=== PATIENT | male | born 1945 | race Caucasian/White ===

== ENCOUNTER 2016-10-15 11:34 | Inpatient (IN) | payer MEDICARE, OTHER ==
--- NOTE | ~2016-10-15 | HP ---
History And Physical [place] [id number] [facility] [place]. [address] NAME: ODILON NOLASCO : 43 STATUS : ADM IN [facility]#: [id number] AGE: 70 ADM/REG DATE : 10/15/16 MR#: [id number] REPORT SERV DATE: 10/15/16 DICTATED BY: VEGA SOLIS DATE: 10/15/16 REPORT STATUS : Draft TRANSCRIBED BY: LINDA DATE: 10/15/16 DATE OF ADMISSION: 10/15/2016 CO-ADMITTING: Porter Iverson D.P.M. REASON FOR ADMISSION: Foot pain. HISTORY OF PRESENT ILLNESS: This is a 70-year-old white male who was offered an operation on his right foot about four to six weeks ago. Anesthesiologist canceled the case because blood sugar was over 400. He does have a longstanding history of adult-onset diabetes mellitus. He says he has lost about 100 pounds from his most obese weight. His blood sugar was not checked this morning because of the pain. He took two Lortab and went to the office of Dr. Porter Iverson where he was evaluated. Dr. Iverson called me and asked for admission. He does have a noninvasive vascular flow study that showed no occlusive elements above the ankle that was done in 07/2016. He had been on three different antibiotics; Septra, Augmentin, and most recently Keflex over the last three months. He does have a draining of a 3-5 mm ulcer on the lateral side of the mid right 4th toe. Dr. Iverson is going to follow and look for other measures to give him pain relief. The pain had been going on for the last six to eight weeks. It had gotten better. It began coming back yesterday all of a sudden in the afternoon, it has been giving pain ever since, he has not gotten any relief. He is mainly admitted for intractable pain and to rule out serious illness and possible treatment options. He is admitted to observation. PAST MEDICAL HISTORY: He has a history of nonocclusive coronary artery disease. Dr. Paniagua in [place] has done coronary arteriography on him with 40% occlusions or less. He is said to have congestive heart failure. His ejection fraction has not been told to him. We will get records from Dr. Paniagua. He has muscle cramps at nighttime. He takes ropinirole and tizanidine for this, but he is on simvastatin as well. HOME MEDICATIONS: Include the following: Furosemide 40 mg p.o. daily, amlodipine 5 mg p.o. daily, potassium chloride 20 mEq p.o. daily, tizanidine 4 mg p.o. at bedtime, simvastatin 20 mg p.o. daily, ropinirole 2 mg p.o. at bedtime, citalopram 20 mg p.o. daily, meloxicam 7.5 mg p.o. daily, cyclobenzaprine 10 mg p.o. twice a day as needed for abdominal cramping, lisinopril 5 mg p.o. daily, furosemide 40 mg p.o. daily, and he had been on the Keflex as mentioned. ALLERGIES: NO KNOWN DRUG ALLERGIES. SOCIAL HISTORY: He has been for about a year and a half. He moved down to [place] about seven years ago. He has been disabled since the when he had bilateral hip joint replacements and knee joint replacement from arthritis. 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 No cigarettes. No alcohol. History And Physical [address] [address] NAME: ODILON NOLASCO : 43 STATUS : ADM IN [facility]#: [id number] AGE: 70 ADM/REG DATE : 10/15/16 MR#: [id number] REPORT SERV DATE: 10/15/16 DICTATED BY: VEGA SOLSI DATE: 10/15/16 REPORT STATUS : Draft TRANSCRIBED BY: LINDA DATE: 10/15/16 FAMILY HISTORY: All of his brothers and sisters six in total are from cancers of various types. His mother and father of cancer as well. REVIEW OF SYSTEMS: He has had no chest pain or shortness of breath. No fever, chills, night sweats, melena, hematemesis, nausea, vomiting, or diarrhea. He does have distal foot pain. It seems to ascend up the ankle and throb. He does have a small ulcer on the right 4th toe as well. He has had no melena, hematemesis, fits, seizures, convulsions, unilateral weakness, nausea, vomiting, or diarrhea. He has lost 100 pounds from his maximum weight. He has no history of gout. There is no history of fracture or trauma to the foot, though he had some bone slivers that were going to be removed by Dr. Iverson. I suspect this was to remove some of the bunion formation causing the pressure ulcer on the right 4th lateral toe. The remainder of the review of systems are negative. PHYSICAL EXAMINATION: VITAL SIGNS: His blood pressure was 140/70 with heart rate 80, respiratory rate 16, afebrile. HEENT: EOMI. Sclerae clear. Conjunctivae pink. NECK: No bruit. No JVD. CHEST: Clear to A and P. HEART: Regular S1, S2 without murmur, gallop, or click. ABDOMEN: Grossly obese. Nontender. Bowel sounds positive. No HSM. EXTREMITIES: He has edema, 3+, pitting in the feet bilaterally. He has tenderness over the right lateral toes with some redness, but no extreme heat. Distal pulses are intact through the dorsalis pedis bilaterally, confirming suspicion for the open vasculature of the lower extremities confirmed by the noninvasive arterial flow study done in 07/2016. This was read by Grey Harper on 07/21/2016 with no evidence of peripheral arterial disease of in the right leg and no significant peripheral arterial disease in the left with DAVID approximately 1. Distal pulses are palpable. NEUROLOGIC: He withdraws to plantar stimulation. 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 Coordination intact. No tremor. He has moderate decreased sensation in his feet bilaterally. LYMPHATICS: There is no adenopathy palpable. SKIN: Without rash, ecchymosis, or bruising. He does have drying of the feet with some reddish changes to the feet with skin peeling and atrophic nails. LABORATORY: Laboratory is being ordered. ASSESSMENT: 1. Right foot pain, recurrent after it had been with him about six or eight weeks ago in toes #4 and #5. There is a small ulcer on the lateral aspect of the right 4th toe at contact with the least toe. 2. Adult-onset diabetes mellitus, uncontrolled. Would start checking blood sugars a.c. and at bedtime. Add sliding scale. History And Physical [facility] [address] [place]. [address] NAME: ODILON NOLASCO : 43 STATUS : ADM IN PAT#: [id number] AGE: 70 ADM/REG DATE : 10/15/16 MR#: [id number] REPORT SERV DATE: 10/15/16 DICTATED BY: VEGA SOLIS DATE: 10/15/16 REPORT STATUS : Draft TRANSCRIBED BY: MODL DATE: 10/15/16 3. Morbid obesity. 4. Doubt peripheral vascular disease as the ultrasound was negative un 07/2016. 5. Ulcer between the 4th and 5th toe. 6. History of congestive heart failure, followed by Dr. Paniagua in the past. 7. Chronic pain though he seldom took two or three of the hydrocodone a week in the interim period since he had the pain initially though that the narcotics are being given by Dr. Porter Iverson. 8. Hyperlipidemia. We will hold the simvastatin because of abdominal cramps and leg cramps. 9. Restless legs syndrome, on ropinirole. PLAN: He has already been treated with three different antibiotic regimens since last July. I will check a procalcitonin and sedimentation rate to see if there is worsening. I am going to go ahead and get an x-ray of the foot as well. Consider surgical intervention with removal of the bunion to help decrease the formation of the ulcer on the toe. Vascular Surgery was consulted by Dr. Porter Iverson, though I do feel dorsalis pedis pulses bilaterally. His pain makes the walking worse. I am going to add gabapentin for neuropathic pain. Check uric acid in the event of gout and try empiric colchicine. Dr. Iverson has consulted infectious Disease to see if this is an infectious entity. We will try to have labs that would be supportive of this as well. His home medications were reviewed. He is on Levemir 50 units subcu b.i.d. and sliding scale NovoLog, lisinopril 5 daily, citalopram 40 mg daily, amlodipine 5 mg p.o. daily, K-Dur 20 p.o. daily, ropinirole 2 mg p.o. daily, tizanidine 4 mg p.o. at nighttime for cramping. The patient is admitted to observation to look for serious illness. Dr. Iverson ordered some IV antibiotics, though if the procalcitonin is normal, we will discontinue those. Attempt pain control, and if no acute interventions to be made, we will discharge home for outpatient followup. We will be checking uric acid as well. DB/MODL Vega Solis M.D. / [id number] CC: Brielle Rasmussen TYLER KEITH
--- NOTE | ~2016-10-15 | DS ---
Discharge Summary [place] [id number] [place]. [address] NAME: ODILON NOLASCO : 43 STATUS : DIS IN PAT#: [id number] AGE: 70 ADM/REG DATE : 10/15/16 MR#: [id number] REPORT SERV DATE: 10/21/16 DICTATED BY: DATE: REPORT STATUS : Draft TRANSCRIBED BY: MODL DATE: 10/20/16 ADMISSION DATE: 10/15/2016 DISCHARGE DATE: 10/20/2016 DISCHARGE DIAGNOSES: 1. Diabetes mellitus type 2 with hyperglycemia. 2. 4th and 5th toe ulceration, postop day three, aortogram and arthroplasty. 3. Obstructive sleep apnea without CPAP. 4. Decreased mobility. 5. Chronic pain. 6. Restless legs syndrome. 7. History of congestive heart failure. 8. Anxiety. 9. Morbid obesity with BMI greater than 40. 10.Hyperlipidemia. 11.Noncompliant with medications or diet at home. 12.Constipation. CONSULTATIONS: Dr. Capone with Vascular, Dr. Duff with Infectious Diseases, and Dr. Iverson with Podiatry. PROCEDURES AND IMAGIN. 10/15/2016, right foot x-ray showed no osseous destruction identifiable to indicate osteomyelitis, osseous demineralization present, diffuse soft tissue swelling. 2. 10/16/2016, venous Doppler of bilateral lower extremities showed:. a. Normal arterial flow too and including the right popliteal artery. b. Monophasic waveforms indicate moderate arterial occlusive disease involving the right popliteal trifurcation and tibial arteries. c. Normal arterial flow in the left femoral artery, left popliteal artery, and left posterior tibial artery at the ankle. The left anterior tibial artery is occluded. d. Diminished waveforms of the digital arteries in each great toe indicates small vessel disease. 3. 10/20/2016, portable chest x-ray shows suspect retrocardiac hiatal hernia and patchy consolidation at the left base. HOSPITAL COURSE: Please refer to Dr. Jose Nicholas's history and physical dated 10/15/2016 for complete details regarding the patient's admission. In brief, the patient was admitted by Dr. Nicholas for initial workup and management of right foot pain. The patient was scheduled to have surgery and anesthesiologist cancelled the case due to blood sugar being over 400. The patient had been seen by Dr. Iverson on a regular basis for drainage of a 3-5 mm ulcer on the lateral side of the mid right toe and has been on three different antibiotics. Infectious Disease was consulted upon arrival and the patient was placed on clotrimazole and other antibiotics were discontinued. Dr. Duff was consulted with Infectious Diseases. Please see consultation on 10/16/2016. The patient had an aortogram by Dr. Capone on his right lower extremity on 10/17/2016 as well as right 4th and 5th toe Discharge Summary [address] [address] NAME: ODILON NOLASCO : 43 STATUS : DIS IN PAT#: [id number] AGE: 70 ADM/REG DATE : 10/15/16 MR#: [id number] REPORT SERV DATE: 10/21/16 DICTATED BY: DATE: REPORT STATUS : Draft TRANSCRIBED BY: LINDA DATE: 10/20/16 proximal interphalangeal joint arthroplasties by Dr. Porter Iverson on 10/17/2016. The patient's hemoglobin A1c was 10.0 upon admission. The patient refused to see washer machine regarding his diet stating that he would not be compliant at home. The patient is supposed to be on a sliding scale insulin at home, but rarely takes his blood sugar even once a day. He states he always eats out at buffets and needs to eat like other people. The patient does take his Levemir insulin 50 units twice daily, but is not compliant with his NovoLog sliding scale. During the patient's stay, he did have overnight oximetry and it was determined that he needs to be wearing 2 L of oxygen at bedtime upon discharge. The patient was evaluated by Physical Therapy and Occupational therapy for difficulties with balance in relation to his surgery. The patient was already having decreased mobility prior to admission and had been using a wheelchair. The patient will be being discharged to rehab. The patient states that he has lost over 100 pounds in the last year or so. The patient's blood sugars have been fairly well controlled with the addition of 5 units with meal insulin. We are increasing his bedtime dosing of Levemir to 52 units to assist with some rebound blood sugars in the morning. The patient's blood cultures at four days are negative. He also has a negative UA. PHYSICAL EXAMINATION: GENERAL: The patient states that he has not been in the chair much because it takes two to three people to get him up. It was discussed with him that he is to get himself to the edge of the bed and should only need assistance for transfer. The patient does verbalizes understanding of this fact. VITAL SIGNS: Blood pressure is 124/58, temperature is 97.9, heart rate is 62, O2 saturation is 97% on room air, respirations are 19. HEENT: Head is atraumatic, normocephalic. Pupils are equal, round, reactive to light. The patient is edentulous. No xanthelasma. Sclerae are clear and nonicteric. NECK: Neck is supple with no obvious lymphadenopathy or thyromegaly. Neck veins are flat. CARDIAC: S1 and S2 with no obvious murmurs, rubs, or gallops. LUNGS: Lungs are clear with normal respiratory effort. Lungs sounds are distant secondary to large body habitus. GI: Abdomen is soft and nontender with bowel sounds in all four quadrants. Normal bowel habitus. Large pannus and obese abdomen. EXTREMITIES: Doppler posterior tibial right lower extremity, toes pink with good capillary refill, less than 2 seconds. Skin of his right crowe is shiny with some edema, but decreased from previous day. Left lower extremity has dorsalis pedis and posterior tibial pulses present 1+. No calf tenderness present. MUSCULOSKELETAL: Moves all extremities x4. SKIN: Warm and dry with normal color and turgor. NEURO/PSYCH: The patient is anxious with activity. Cranial nerves II through XII are grossly intact. DISCHARGE DIET: 1800-calorie ADA diet. DISCHARGE MEDICATIONS: Norvasc 5 mg daily, aspirin 81 mg daily, Plavix 75 mg daily, Celexa 40 mg daily, Neurontin 300 mg every eight hours, NovoLog insulin sliding scale level 2 with meals and at bedtime, NovoLog 5 units before meals, Requip 2 mg at bedtime, Zanaflex 4 mg at bedtime, Levemir 50 units in the morning and 52 units in the evening, Tylenol 650 mg p.r. or Discharge Summary [address] [address] NAME: ODILON NOLASCO : 43 STATUS : DIS IN PAT#: [id number] AGE: 70 ADM/REG DATE : 10/15/16 MR#: [id number] REPORT SERV DATE: 10/21/16 DICTATED BY: DATE: REPORT STATUS : Draft TRANSCRIBED BY: MODL DATE: 10/20/16 p.o. q.4 hours p.r.n. temperature greater than 101 or mild pain, Colace 100 mg p.o. twice daily as needed for bowel movements, glucose tablets for hypoglycemia protocol, Zofran 4 mg p.o. or sublingual every four hours as needed for nausea and vomiting, [place] 5/325 one tablet p.o. q.4 hours p.r.n. pain, Senokot two tablets p.o. p.r.n. bedtime, Zanaflex 4 mg three times a day p.r.n. spasm, Prinivil 5 mg daily, Lasix 40 mg daily, potassium chloride 20 mEq every other day, simvastatin 20 mg daily. ALLERGIES: THE PATIENT HAS NO KNOWN DRUG ALLERGIES. DISCHARGE INSTRUCTIONS: The patient is to follow up with PCP, Ren Hogan one week after discharge. The patient is to follow up with Dr. Iverson in one week, Dr. Capone in two to four weeks. Approximately, 40 minutes has been spent coordinating discharge care of this patient, including [id number] encounter and summarization of the discharge. DICTATED BY: MONISHA Irby/LINDA Janet Xie NP / [id number] CC: Brielle Jacobs TYLER KEITH
--- NOTE | ~2016-10-15 | CN ---
Consultation Report [facility] [address] [place]. [address] NAME: ODILON NOLASCO : 43 STATUS : ADM IN [facility]#: [id number] AGE: 70 ADM/REG DATE : 10/15/16 MR#: [id number] REPORT SERV DATE: 10/16/16 DICTATED BY: NAREN VENCES DATE: 10/15/16 REPORT STATUS : Draft TRANSCRIBED BY: LINDA DATE: 10/15/16 DATE OF CONSULTATION: REFERRING PHYSICIAN: Cachorro Schroeder DPM. REASON FOR CONSULT: Possible right foot infection. HISTORY OF PRESENT ILLNESS: A 70 years old white male with history of diabetes which is uncontrolled, hypertension, COPD, sleep apnea, diastolic dysfunction, hyperlipidemia, bilateral hip replacement, previous left knee surgery, profoundly suffered with lower legs edema and pruritus. He scratched them a lot. He had a wound between the right fourth and fifth toes with associated pain and maybe erythema. He was treated with Augmentin in July and recently with Keflex within the 09/29/2016 and 10/09/2016. He also got some opioids for pain. Yesterday, apparently he had severe pain in the foot and went to his tube cleaner who admitted the patient. I do not have any notes from Podiatry to understand exactly what the plan is, but the patient tells me that he had severe pain and uncontrolled diabetes and circulation problems. The patient reports no fever. He has chronic dyspnea. He has no pain in the hips or knees. Lab work here shows normal sedimentation rate at 11 and procalcitonin of less than 0.05. No leukocytosis with WBC of 8. A foot x-ray showed no evidence of osteomyelitis. Hemoglobin A1c is high at 10 and glucose is 312. The patient states he seems to be unable to keep a diabetic diet. Urinalysis unremarkable except for small urobilinogen, creatinine 0.7. PAST MEDICAL HISTORY: As I mentioned above. Restless legs. SOCIAL HISTORY: He is , disabled, retired. FAMILY HISTORY: Heart disease. ALLERGIES: NONE. MEDICATIONS ON ADMISSION: Aspirin, Celexa, Lasix, ibuprofen as needed, insulin, lisinopril, potassium, ropinirole, and simvastatin. PHYSICAL EXAMINATION: GENERAL: On exam, he is alert, awake. HEART: Distant sounds. Regular rhythm. LUNGS: Seem clear to auscultation. ABDOMEN: Obese. SKIN: Compressible skin with red papules over the chest and tiny scratch paul over the lower legs. He has lower legs edema. He has feet scaly skin. There is a little erythema on the left lateral foot, but there is no warmth to touch. Right foot without erythema or warmth to touch. In the space between the fourth and fifth toes, the skin is moist, but I cannot see an open wound. The toes are tight and it hurts when I try to spread them, so I cannot get a very good review, but I could not feel the dorsalis pedis pulse in the right Consultation Report [facility] [address] [place]. [address] NAME: ODILON NOLASCO : 43 STATUS : ADM IN [facility]#: [id number] AGE: 70 ADM/REG DATE : 10/15/16 MR#: [id number] REPORT SERV DATE: 10/16/16 DICTATED BY: NAREN VENCES DATE: 10/15/16 REPORT STATUS : Draft TRANSCRIBED BY: LINDA DATE: 10/15/16 foot. LAB WORK: As I mentioned. ASSESSMENT AND PLAN: 1. The patient has lower legs edema, scratch paul over the legs and interdigital tenia with severe pain between the fourth and fifth toes. He was previously treated for a wound in this area and maybe cellulitis. He just finished antibiotics on 10/09/2016. Currently I do not see any open wound or foot cellulitis. He has no fever, no leukocytosis. He has normal procalcitonin, white blood cell count, and sedimentation rate. I do not see reason to give antibiotics, but would use topical antifungal between the toes and through the skin of the feet. 2. Uncontrolled diabetes, that needs to be addressed. 3. Coronary artery disease, chronic obstructive pulmonary disease, sleep apnea, hypertension, obesity. 4. Bilateral hip replacement. On exam, there is no pain with range of motion of the hips and knees. Followup as needed. I placed a call to discuss with the tube cleaner. ROBBIN/LINDA Naren Vences M.D. / [id number] CC: Jose Nicholas M.D.
--- NOTE | ~2016-10-15 | PUL ---
[facility] [address] [facility] [place]. [address] NAME: ODILON NOLASCO : 43 STATUS : DIS IN PAT#: [id number] AGE: 70 ADM/REG DATE : 10/15/16 MR#: [id number] REPORT SERV DATE: 10/20/16 DICTATED BY: ERASTO MARTINEZ IV DATE: 10/20/16 REPORT STATUS : Draft TRANSCRIBED BY: LINDA DATE: 10/20/16 PULMONARY FUNCTION TEST OVERNIGHT OXIMETRY Study was performed on room air. 7 hours and 2 minutes of data are available for review. The mean oxygen saturation was 89.9%. The lowest scored saturation was 83%. The patient spent 42 minutes with oxygen saturations less than 88%. There were periods of oxygen saturation variation in saw-tooth pattern that varied by more than 4%. These appeared to be clustered more commonly near the end of the study. IMPRESSION: Significant nocturnal hypoxemia on room air. I would suggest placing the patient on 2 L of supplemental oxygen. There was a background pattern consistent with obstructive sleep apnea that would be mild to moderate based on a desaturation index of 15.6 per hour. I would suggest obtaining a formal polysomnography. ELIDA/LINDA Erasto Martinez IV, M.D. / [id number]
--- NOTE | ~2016-10-15 | OP ---
Record Of Operation [facility] [address] [place]. [address] NAME: ODILON NOLASCO : 43 STATUS : ADM IN PAT#: [id number] AGE: 70 ADM/REG DATE : 10/15/16 MR#: [id number] REPORT SERV DATE: 10/19/16 DICTATED BY: PORTER IVERSON DATE: 10/18/16 REPORT STATUS : Draft TRANSCRIBED BY: MODL DATE: 10/18/16 DATE OF PROCEDURE: 10/17/2016 SURGERY PERFORMED: [facility]. SURGEON: Porter Iverson D.P.M. 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 PROCEDURE: Right 4th and 5th toe proximal interphalangeal joint arthroplasties. PATHOLOGY: Bone, sent for histopathologic analysis. ANESTHESIA: Local with monitored anesthesia care with IV sedation. ESTIMATED BLOOD LOSS: 5 mL. MATERIALS: 2-0 Ethilon, 2-0 Vicryl. INJECTABLES: 7 mL of 1:1 mixture, 1% Xylocaine plain and 0.5% Marcaine plain. COMPLICATIONS: None. INDICATIONS: This is a 70-year-old gentleman who has had recent history of a painful ulceration on his right lateral 4th toe. The patient has been treated in the office with conservative care including normal saline, wet-to-dry dressings in the right 4th interdigital space. The patient recently presented to the office with concern of severe pain in the right forefoot. There was not any significant changes to the ulceration, however, the right 4th and 5th toes were extremely tender to palpation. Previous cultures of the ulceration were negative for any growth. There was concern, however, that due to the patient's severe pain that he was showing signs of ischemia. Recommended to be admitted to the hospital for vascular surgical intervention and also surgical treatment of the toes to address the biomechanics that are creating this ulceration. Dr. Capone, Vascular Surgery Service, was consulted and recommended the patient undergo right lower extremity arteriogram with endovascular intervention. It was recommended by our service that he undergo right 4th and 5th toe PIPJ arthroplasties. Discussed with the patient that by removing the heads of the proximal phalanges of the right 4th and 5th toes, reduced to contracture deformity that was resulting in the painful ulceration. Discussed with the patient that this procedure needs to be done along with Dr. Capone in order to make sure that the foot is getting adequate blood flow to heal from the surgery as well as to address the symptoms in his right foot. No problems or guarantees were given. The patient is scheduled for surgery. Record Of Operation [place] [address] [place]. [address] NAME: ODILON NOLASCO : 43 STATUS : ADM IN PAT#: [id number] AGE: 70 ADM/REG DATE : 10/15/16 MR#: [id number] REPORT SERV DATE: 10/19/16 DICTATED BY: PORTER IVERSON DATE: 10/18/16 REPORT STATUS : Draft TRANSCRIBED BY: LINDA DATE: 10/18/16 The patient was brought to the endovascular suite and transferred to the operating room table in the supine position. Appropriate monitoring equipment including EKG, blood pressure, pulse oximeter were attached to the patient and found to be in good working order. IV access was established on the floor. The patient was given preoperative antibiotics by Anesthesia. After the patient was identified by the surgeon, sedation was administered. The patient's right lower extremity was prepped and draped in the usual sterile manner for both our procedure as well as the arteriogram. The distal aspect of the left foot was further draped in order to provide a barrier between our procedure and vascular procedure. At this time, digital blocks were administered to the right 4th and 5th toes with a 1:1 mixture of 1% Xylocaine plain and 0.5% Marcaine plain. Attention was directed towards the dorsum of the right 4th and 5th toes over the area of the PIPJ. Longitudinal incisions were made and incisions were deepened with sharp and blunt dissection. The long extensor tendon on the right 4th and 5th toes were identified over the area of the PIPJ and transected horizontally. Medial and lateral collateral ligamentous structures were dissected free from the head of the proximal phalanx of the right 4th and 5th toes. The heads of the proximal phalanges of the right 4th and 5th toes were then removed with a double-action bone cutting forceps. The resected bone was sent for histopathologic analysis. 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 This reduced pressure on the side of the ulceration on the lateral aspect of the right 4th toe. Operative sites were copiously irrigated with normal saline. Long extensor tendons were repaired with 4-0 Vicryl and skin was reapproximated with 4-0 Ethilon in a simple interrupted and interrupted horizontal mattress fashion. Standard postop dressing including Xeroform, dry sterile gauze, and 4 inch Jose wrap was applied to the right foot. After our procedure was performed, Dr. Capone then performed endovascular intervention as dictated by Dr. Capone. The patient tolerated the procedures and anesthesia well. The patient left the operating room and returned to recovery room with vital signs stable and vital signs intact. The patient will be readmitted to the floor at [facility] for continued postoperative care. Once medically and surgically stable, will be discharged home. We will follow up the patient. /MODL Porter Iverson D.P.M. / [id number] CC: Brielle Jacobs M.D.
--- NOTE | ~2016-10-15 | OP ---
Record Of Operation [facility] [address] [place]. [address] NAME: ODILON NOLASCO : 43 STATUS : DIS IN PAT#: [id number] AGE: 70 ADM/REG DATE : 10/15/16 MR#: [id number] REPORT SERV DATE: 10/20/16 DICTATED BY: FABIEN CAPONE DATE: 10/20/16 REPORT STATUS : Draft TRANSCRIBED BY: MODL DATE: 10/20/16 DATE OF PROCEDURE: 10/17/2016 PREPROCEDURE DIAGNOSIS: Right lower extremity arterial insufficiency, status post carotid artery evaluation. POSTOPERATIVE DIAGNOSIS: Right mid post tibial artery occlusion. PROCEDURES PERFORMED: 1. Antegrade right superficial femoral artery catheterization with direct arteriography. 2. Selective catheterization of the right popliteal artery and posterior tibial artery with direct arteriography. 3. Atherectomy of the right post tibial artery with a CSI 1.25 M catheter with secondary angioplasty 2.5 x 80 mm balloon. ANESTHESIA: Local MAC. COMPLICATIONS: None. INDICATION FOR PROCEDURE: Secondary to this very pleasant 70-year-old gentleman, status post podiatric operation in this operating time by Dr. Porter Iverson. Please see his notes for complete information. Recommendations were made for arteriography to further define his peripheral vascular system secondary to obstructive pathology. Consent was given deep. DETAILS OF PROCEDURE: The patient was brought to the endovascular operating room, placed in supine position, prepped and draped in routine sterile fashion with attention to the bilateral groin and entire right lower leg. The right superficial femoral artery was then catheterized with a micropuncture needle followed by a wire and sheath. Arteriogram demonstrated widely patent proximal and distal SFA, proximal and distal popliteal artery. A sheath was then placed. The catheter was advanced down to the distal popliteal artery and arteriogram demonstrated widely patent peroneal artery all the way to the anterior tibial artery to the ankle. But posterior tibial artery became sluggish in the mid segment and then occluded with reconstitution distally. The patient's operation was on the fourth and fifth toes and lateral plantar artery was the direct contiguous artery. Therefore atherectomy was indicated for the right posterior tibial artery. Wire was then passed through this area. This was then followed by a CSI atherectomy with a 1.25 catheter; standard triple passed technique followed by angioplasty with a 2.5 x 80 balloon. This adequately opened the posterior tibial artery. There was one small area of narrowing below this that also responded well to simple angioplasty. Completion imaging showed widely patent flow into the medial and lateral plantar arteries of the foot, improved flow as compared to before surgery. At this point, wires, catheters, and sheaths were then removed. The right groin was then closed with an Angio-Seal. Patient tolerated the procedure well. CL/MODL Record Of Operation [address] [address] NAME: ODILON NOLASCO JASMIN : 43 STATUS : DIS IN PAT#: [id number] AGE: 70 ADM/REG DATE : 10/15/16 MR#: [id number] REPORT SERV DATE: 10/20/16 DICTATED BY: FABIEN CAPONE DATE: 10/20/16 REPORT STATUS : Draft TRANSCRIBED BY: LINDA DATE: 10/20/16 Fabien Capone M.D. / [id number] CC: Willem Alcaraz M.D.
[2016-10-15 13:11] LABS: BASOPHILS 0.1 %; BASOPHILS ABSOLUTE 0.01 10/3/uL (0.0-0.16); EOSINOPHILS ABSOLUTE 0.16 10/3/uL (0.0-0.53); HEMATOCRIT 43.5 % (40.0-51.0); HEMOGLOBIN 14.9 g/dL (13.6-17.8); IMMATURE GRANULOCYTES 0.1 %; IMMATURE GRANULOCYTES ABSOLUTE 0.01 10/3/uL (0.0-0.11); LYMPHOCYTES 19.6 %; LYMPHOCYTES ABSOLUTE 1.55 10/3/uL (0.67-4.30); MANUAL DIFF NO %; MEAN CORPUS HGB CONC 34.3 g/dL (32.0-36.0); MEAN CORPUSCULAR HEMOGLOB 29.7 pg (26.0-34.0); MEAN CORPUSCULAR VOLUME 86.8 fL (80-100); MONOCYTES 6.5 %; MONOCYTES ABSOLUTE 0.51 10/3/uL (0.21-1.20); NEUTROPHILS 71.7 %; NEUTROPHILS ABSOLUTE 5.66 10/3/uL (2.02-8.40); PLATELET COUNT 168 10/3/uL (150-400); RBC DISTRIBUTION WIDTH 13.3 % (12.0-16.0); RED CELL COUNT 5.01 10/6/uL (4.7-6.1); WHITE BLOOD CELLS 7.9 10/3/uL (4.5-10.5)
[2016-10-15 13:17] LABS: INTERNATIONAL NORMAL RATI 1.1 UNITS (-); PROTIME (NOT ORD) 14.2 SEC (12.0-14.5)
[2016-10-15 13:28] LABS: ALBUMIN 3.3 G/DL (3.5-5.0); ALKALINE PHOSPHATASE 76 U/L (45-117); BUN (BLOOD UREA NITROGEN) 12 MG/DL (6-23); CALCIUM, SERUM 8.7 MG/DL (8.5-10.4); CHLORIDE, SERUM 105 MMOL/L (96-112); CO2 (CARBON DIOXIDE) 29 MMOL/L (24-34); CREATININE 0.72 MG/DL (0.70-1.30); GFR AFRICAN AMERICAN 109 ML/MIN (>=60); GFR NON AFRICAN AMERICAN 94 ML/MIN (>=60); GLOBULIN 3.3 G/DL (2.5-4.1); GLUCOSE, SERUM 312 MG/DL (60-99); SGOT(AST) 10 U/L (5-40); SGPT(ALT) 11 U/L (5-65); SODIUM, SERUM 141 MMOL/L (135-148); TOTAL BILIRUBIN 0.7 MG/DL (0-1.2); TOTAL PROTEIN 6.6 G/DL (6.0-8.5)
[2016-10-15] MEDS ORDERED: K500 PO (13:45)
[2016-10-15] MEDS ORDERED: NORCO1 TA1 PO (13:47)
[2016-10-15] MEDS ORDERED: CELEXA40 MG PO (13:47)
[2016-10-15] MEDS ORDERED: PRIN5 PO (13:48)
[2016-10-15] MEDS ORDERED: L40 PO (13:49)
[2016-10-15] MEDS ORDERED: KLOR-CON M2020 MEQ PO (13:49)
[2016-10-15] MEDS ORDERED: NOVOLOG SC (13:49)
[2016-10-15] MEDS ORDERED: LEVEMFLXPN SC (13:49)
[2016-10-15] MEDS ORDERED: REQUIP2 PO (13:50)
[2016-10-15] MEDS ORDERED: ZOCOR20 PO (13:51)
[2016-10-15] MEDS ORDERED: ASA5GR PO (13:52)
[2016-10-15] MEDS ORDERED: ADVIL PO (13:52)
[2016-10-15 14:09] LABS: SED RATE 11 MM/HR (0-15)
[2016-10-15 15:11] LABS: PARTIAL THROMBO TIME 30.1 SEC (22.5-37.2)
[2016-10-15 18:22] LABS: FREE T4 1.02 NG/DL (0.76-1.46)
[2016-10-15 18:34] LABS: PROCALCITONIN <0.05 ng/mL (<0.5)
[2016-10-15 19:27] LABS: ASCORBIC ACID (UR NOT ORDER) NEG (NEG); BILIRUBIN, URINE NEGATIVE (NEG); KETONE, URINE NEGATIVE (NEG); LEUKOCYTE ESTERASE(NOT OR NEG (NEG); WBC (NOT ORDERED) (RFLEX) 3 (0-5)
[2016-10-17 05:49] LABS: BASOPHILS 0.1 %; BASOPHILS ABSOLUTE 0.01 10/3/uL (0.0-0.16); EOSINOPHILS 1.9 %; EOSINOPHILS ABSOLUTE 0.18 10/3/uL (0.0-0.53); HEMATOCRIT 40.1 % (40.0-51.0); HEMOGLOBIN 13.4 g/dL (13.6-17.8); IMMATURE GRANULOCYTES 0.3 %; IMMATURE GRANULOCYTES ABSOLUTE 0.03 10/3/uL (0.0-0.11); LYMPHOCYTES 14.2 %; LYMPHOCYTES ABSOLUTE 1.34 10/3/uL (0.67-4.30); MEAN CORPUS HGB CONC 33.4 g/dL (32.0-36.0); MEAN PLATELET VOLUME 10.9 fL (9.2-13.0); MONOCYTES 6.8 %; MONOCYTES ABSOLUTE 0.64 10/3/uL (0.21-1.20); NEUTROPHILS 76.7 %; NEUTROPHILS ABSOLUTE 7.22 10/3/uL (2.02-8.40); PLATELET COUNT 162 10/3/uL (150-400); RBC DISTRIBUTION WIDTH 13.2 % (12.0-16.0); RED CELL COUNT 4.47 10/6/uL (4.7-6.1); WHITE BLOOD CELLS 9.4 10/3/uL (4.5-10.5)
[2016-10-17 05:56] LABS: MEAN CORPUSCULAR VOLUME 89.7 fL (80-100)
[2016-10-17 05:57] LABS: MANUAL DIFF NO %
[2016-10-17 06:01] LABS: BUN (BLOOD UREA NITROGEN) 16 MG/DL (6-23); CHLORIDE, SERUM 107 MMOL/L (96-112); CO2 (CARBON DIOXIDE) 27 MMOL/L (24-34); CREATININE 0.78 MG/DL (0.70-1.30); GFR AFRICAN AMERICAN 105 ML/MIN (>=60); GFR NON AFRICAN AMERICAN 91 ML/MIN (>=60); POTASSIUM, SERUM 4.1 MMOL/L (3.5-5.3); SODIUM, SERUM 140 MMOL/L (135-148)
[2016-10-17 06:02] LABS: GLUCOSE, SERUM 171 MG/DL (60-99)
[2016-10-18 04:20] LABS: BASOPHILS 0.2 %; BASOPHILS ABSOLUTE 0.02 10/3/uL (0.0-0.16); EOSINOPHILS 2.6 %; EOSINOPHILS ABSOLUTE 0.22 10/3/uL (0.0-0.53); HEMATOCRIT 41.1 % (40.0-51.0); HEMOGLOBIN 13.5 g/dL (13.6-17.8); IMMATURE GRANULOCYTES 0.2 %; IMMATURE GRANULOCYTES ABSOLUTE 0.02 10/3/uL (0.0-0.11); LYMPHOCYTES 16.6 %; MEAN CORPUS HGB CONC 32.8 g/dL (32.0-36.0); MEAN CORPUSCULAR HEMOGLOB 29.7 pg (26.0-34.0); MEAN CORPUSCULAR VOLUME 90.5 fL (80-100); MEAN PLATELET VOLUME 10.6 fL (9.2-13.0); MONOCYTES 9.5 %; NEUTROPHILS 70.9 %; NEUTROPHILS ABSOLUTE 5.96 10/3/uL (2.02-8.40); PLATELET COUNT 151 10/3/uL (150-400); RBC DISTRIBUTION WIDTH 13.6 % (12.0-16.0); RED CELL COUNT 4.54 10/6/uL (4.7-6.1); WHITE BLOOD CELLS 8.4 10/3/uL (4.5-10.5)
[2016-10-18 04:21] LABS: MANUAL DIFF NO %
[2016-10-18 04:34] LABS: BUN (BLOOD UREA NITROGEN) 15 MG/DL (6-23); CALCIUM, SERUM 8.2 MG/DL (8.5-10.4); CHLORIDE, SERUM 106 MMOL/L (96-112); CREATININE 0.98 MG/DL (0.70-1.30); GFR AFRICAN AMERICAN 90 ML/MIN (>=60); GFR NON AFRICAN AMERICAN 77 ML/MIN (>=60); GLUCOSE, SERUM 194 MG/DL (60-99); POTASSIUM, SERUM 4.7 MMOL/L (3.5-5.3); SODIUM, SERUM 141 MMOL/L (135-148)
[2016-10-18 04:35] LABS: CO2 (CARBON DIOXIDE) 33 MMOL/L (24-34)
[2016-10-19 05:06] LABS: BASOPHILS 0.2 %; BASOPHILS ABSOLUTE 0.02 10/3/uL (0.0-0.16); EOSINOPHILS 1.1 %; EOSINOPHILS ABSOLUTE 0.13 10/3/uL (0.0-0.53); HEMATOCRIT 42.2 % (40.0-51.0); HEMOGLOBIN 13.7 g/dL (13.6-17.8); IMMATURE GRANULOCYTES 0.3 %; IMMATURE GRANULOCYTES ABSOLUTE 0.03 10/3/uL (0.0-0.11); LYMPHOCYTES ABSOLUTE 0.84 10/3/uL (0.67-4.30); MANUAL DIFF NO %; MEAN CORPUS HGB CONC 32.5 g/dL (32.0-36.0); MEAN CORPUSCULAR HEMOGLOB 29.6 pg (26.0-34.0); MEAN CORPUSCULAR VOLUME 91.1 fL (80-100); MONOCYTES 7.7 %; MONOCYTES ABSOLUTE 0.92 10/3/uL (0.21-1.20); NEUTROPHILS 83.7 %; PLATELET COUNT 153 10/3/uL (150-400); RBC DISTRIBUTION WIDTH 13.8 % (12.0-16.0); RED CELL COUNT 4.63 10/6/uL (4.7-6.1); WHITE BLOOD CELLS 11.9 10/3/uL (4.5-10.5)
[2016-10-19 05:20] LABS: CALCIUM, SERUM 8.7 MG/DL (8.5-10.4); CHLORIDE, SERUM 105 MMOL/L (96-112); CREATININE 1.12 MG/DL (0.70-1.30); GFR AFRICAN AMERICAN 76 ML/MIN (>=60); GFR NON AFRICAN AMERICAN 66 ML/MIN (>=60); GLUCOSE, SERUM 166 MG/DL (60-99); SODIUM, SERUM 139 MMOL/L (135-148)
[2016-10-19 05:22] LABS: BUN (BLOOD UREA NITROGEN) 22 MG/DL (6-23); CO2 (CARBON DIOXIDE) 28 MMOL/L (24-34)
[2016-10-20 06:04] LABS: ASCORBIC ACID (UR NOT ORDER) NEG (NEG); BILIRUBIN, URINE NEGATIVE (NEG); KETONE, URINE NEGATIVE (NEG); LEUKOCYTE ESTERASE(NOT OR NEG (NEG); WBC (NOT ORDERED) (RFLEX) 3 (0-5)
[2016-10-20 06:15] LABS: BASOPHILS 0.1 %; BASOPHILS ABSOLUTE 0.01 10/3/uL (0.0-0.16); EOSINOPHILS 3.3 %; EOSINOPHILS ABSOLUTE 0.24 10/3/uL (0.0-0.53); HEMATOCRIT 40.5 % (40.0-51.0); HEMOGLOBIN 13.4 g/dL (13.6-17.8); IMMATURE GRANULOCYTES 0.3 %; IMMATURE GRANULOCYTES ABSOLUTE 0.02 10/3/uL (0.0-0.11); LYMPHOCYTES ABSOLUTE 1.32 10/3/uL (0.67-4.30); MEAN CORPUS HGB CONC 33.1 g/dL (32.0-36.0); MEAN CORPUSCULAR HEMOGLOB 30.1 pg (26.0-34.0); MEAN PLATELET VOLUME 11.3 fL (9.2-13.0); MONOCYTES 10.5 %; MONOCYTES ABSOLUTE 0.77 10/3/uL (0.21-1.20); NEUTROPHILS 67.8 %; NEUTROPHILS ABSOLUTE 4.99 10/3/uL (2.02-8.40); PLATELET COUNT 152 10/3/uL (150-400); RBC DISTRIBUTION WIDTH 13.3 % (12.0-16.0); RED CELL COUNT 4.45 10/6/uL (4.7-6.1); WHITE BLOOD CELLS 7.4 10/3/uL (4.5-10.5)
[2016-10-20 06:16] LABS: MANUAL DIFF NO %
[2016-10-20 06:32] LABS: BUN (BLOOD UREA NITROGEN) 18 MG/DL (6-23); CALCIUM, SERUM 8.5 MG/DL (8.5-10.4); CHLORIDE, SERUM 108 MMOL/L (96-112); CO2 (CARBON DIOXIDE) 34 MMOL/L (24-34); CREATININE 0.79 MG/DL (0.70-1.30); GFR AFRICAN AMERICAN 105 ML/MIN (>=60); GFR NON AFRICAN AMERICAN 90 ML/MIN (>=60); GLUCOSE, SERUM 144 MG/DL (60-99); POTASSIUM, SERUM 4.4 MMOL/L (3.5-5.3); SODIUM, SERUM 143 MMOL/L (135-148)
== END 2016-10-20 18:52 | DRG 271 ==
LOC: CDU1 11:34 → SDC/OF 10-17 16:57 → PACU 10-17 20:33 → SSU1 10-17 22:02 → 2SO 10-18 10:27
PROVIDERS: Internal Medicine; Nurse Practitioner Family; Podiatrist; Specialist
PROC: B41D1ZZ Fluoroscopy of Aorta and Bilateral Lower Extremity Arteries using Low Osmolar Contrast (ICD-10-PCS; 2016-10-17)
PROC: 0SQP0ZZ Repair Right Toe Phalangeal Joint, Open Approach (ICD-10-PCS; principal; 2016-10-17 18:00)
PROC: 04CP3ZZ Extirpation of Matter from Right Anterior Tibial Artery, Percutaneous Approach (ICD-10-PCS; 2016-10-17 18:00)
PROC: 04HK3DZ Insertion of Intraluminal Device into Right Femoral Artery, Percutaneous Approach (ICD-10-PCS; 2016-10-17 18:00)
PROC: B41F1ZZ Fluoroscopy of Right Lower Extremity Arteries using Low Osmolar Contrast (ICD-10-PCS; 2016-10-17 18:00)
DX: E11.51 Type 2 diabetes mellitus with diabetic peripheral angiopathy without gangrene (principal); Z68.41 Body mass index [BMI] 40.0-44.9, adult; I50.22 Chronic systolic (congestive) heart failure; E11.621 Type 2 diabetes mellitus with foot ulcer; E11.65 Type 2 diabetes mellitus with hyperglycemia; E66.01 Morbid (severe) obesity due to excess calories; L97.511 Non-pressure chronic ulcer of other part of right foot limited to breakdown of skin; J44.9 Chronic obstructive pulmonary disease, unspecified; M19.90 Unspecified osteoarthritis, unspecified site; G89.29 Other chronic pain; G25.81 Restless legs syndrome; G47.33 Obstructive sleep apnea (adult) (pediatric); F41.9 Anxiety disorder, unspecified; E78.5 Hyperlipidemia, unspecified; Z96.643 Presence of artificial hip joint, bilateral; Z96.653 Presence of artificial knee joint, bilateral; K59.00 Constipation, unspecified; K44.9 Diaphragmatic hernia without obstruction or gangrene; M20.41 Other hammer toe(s) (acquired), right foot; Z80.9 Family history of malignant neoplasm, unspecified; Z79.4 Long term (current) use of insulin; Z82.49 Family history of ischemic heart disease and other diseases of the circulatory system; Z91.19 Patient's noncompliance with other medical treatment and regimen
CPT/HCPCS: 28825; 37229; 71010; 73630-RT; 75710; 80048; 80053; 81001; 82962; 83036; 83735; 84145; 84439; 84443; 84550; 85025; 85610; 85652; 85730; 87040; 88304; 88311; 93005; 93923; 94762; 97110-GP; 97116-GP; 97162-GP; A9270-GY; C1725; C1760; C1769; C1887; C1894; G8978-CL-GP; G8979-CJ-GP; J0690; J1170; J2270; J2405; J3010; J3370; Q9967